=== PATIENT | male | born 1965 | race Caucasian/White ===

== ENCOUNTER 2020-04-14 13:12 | Outpatient (CLI) | payer OTHER, SELFPAY ==
--- NOTE | 2020-04-14 13:55 | CT_ITS ---
WS: [id number] CT ANGIOGRAPHY abdomen and pelvis AORTA HISTORY: F/U AAA, PELVIC PAIN, GENERALIZED ABDOMINAL PAIN TECHNIQUE: CT angiogram is performed during IV injection. Reformation images reviewed. All CT scans a [facility] use at least one of these dose optimization techniques: automated exposure co ntrol; mA and/or kV adjustment per patient size (includes targeted exams where dose is matched to cli nical indication); or iterative reconstruction. CONTRAST: Omnipaque 350; 95 mL IV. DLP: 990.18 mGycm COMPARISON: 01/01/2017 Mild emphysematous changes at the lung bases. Linear lingular atelectasis. No hiatal hernia. Normal h eart. Mild hepatic steatosis. Visualized liver and pancreas are normal. No adrenal mass. Normal early arter ial enhancement of the kidneys. Prior cholecystectomy and appendectomy. No adenopathy or ascites. The re are numerous sigmoid diverticula without acute diverticulitis. Very mild diffuse thickening of the bladder wall. Abdominal aorta: Moderate atherosclerotic changes within the abdominal aorta. Scattered calcified nomi ques throughout with circumferential intimal thickening. Lumen becomes narrowed just below the level of the renal arteries by thrombus. There has been increase in the amount of intraluminal thrombus sin ce the prior study. Mild aneurysmal dilatation to 3.0 cm has slightly progressed since the prior stud y. Mild narrowing and stenosis of the distal aorta and the proximal iliac arteries. No periaortic hem atoma. Origin of celiac axis and SMA are normal. Normal single-vessel renal arteries. LUCINDA is still pa tent. Degenerative disc disease at L5-S1. No osteoblastic or osteolytic bone disease. 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 CT/CT angio abdomen pelvis [id number] IMPRESSION: 1. Mild progression of abdominal aortic aneurysm now now measuring 3.0 cm. 2. Mild progression of atherosclerotic plaque and intimal thrombus. 3. Mild stenosis distal aorta and proximal common iliac arteries. 4. Luminal narrowing secondary to a regular intraluminal thrombus at the L2-3 level. Diameter of the patent lumen is 1.0 cm. 5. Prior appendectomy and cholecystectomy.
[2020-04-14] MEDS: iohexol 300 mg/mL 50 mL Btl PO (13:57)
[2020-04-14] MEDS: iohexol 350 mg/mL 100 mL Btl IV (15:25)
== END 2020-04-14 13:13 | disposition home or self-care (01) ==
PROVIDERS: Family Provider Family Medicine; Visit Provider Family Medicine
DX: R10.2 Pelvic and perineal pain (principal); R10.84 Generalized abdominal pain; I71.4 Abdominal aortic aneurysm, without rupture; I35.0 Nonrheumatic aortic (valve) stenosis
CPT/HCPCS: 74174; Q9967

== ENCOUNTER → 2020-05-19 10:36 | Outpatient (BNVA) | payer OTHER, SELFPAY | PROVIDERS: Family Provider Family Medicine; Referring Provider Family Medicine; Visit Provider Specialist | DX: M25.551 Pain in right hip (principal) | CPT/HCPCS: 73502 ==

== ENCOUNTER 2021-12-16 10:41 | Outpatient (CLI) | payer OTHER, SELFPAY ==
[2021-12-16 11:17] VITALS: BP 106/72; BP 106/76; PULSE 58; PULSE 66; RESP 18; TEMP 36.3; TEMP 36.7; O2SAT 97; O2SAT 98; BMI 27.5
== END 2021-12-16 13:26 | disposition home or self-care (01) ==
LOC: OPS 10:48
PROVIDERS: Visit Provider Nurse Practitioner
DX: U07.1 COVID-19 (principal)
CPT/HCPCS: 96365

== ENCOUNTER → 2022-04-04 11:58 | Outpatient (BNVA) | payer OTHER, SELFPAY | PROVIDERS: Visit Provider Family Medicine | DX: R35.0 Frequency of micturition (principal); E11.9 Type 2 diabetes mellitus without complications; I71.4 Abdominal aortic aneurysm, without rupture; K76.0 Fatty (change of) liver, not elsewhere classified | CPT/HCPCS: 80053; 80061; 83036; 84153; 85025 ==

== ENCOUNTER 2022-04-20 09:46 | Outpatient (CLI) | payer OTHER, SELFPAY ==
--- NOTE | 2022-04-20 10:23 | US_ITS ---
WS: [id number] Ultrasound pelvis, male patient. HISTORY: Pelvic pain off and on for 6 to 8 months. Urinary bladder is well distended. There is mild diffuse wall thickening probably due to outlet obstr uction. There is a small amount of debris in the dependent urinary bladder. Prostate gland is enlarge d encroaching into the bladder. Prostate measures 3.7 x 4.8 x 3.0 cm. No free fluid. US/US pelvic complete* [id number] IMPRESSION: 1. Mild diffuse wall thickening of the urinary bladder probably due to prostat e hypertrophy and partial outlet obstruction. 2. No focal bladder wall thickening. 3. Mild prostate enlargement.
--- NOTE | 2022-04-20 10:23 | USCV_ITS ---
Robert Malone Age: 56 Gender: M : 1965 Exam Date: 04/20/2022 10:47 Ordering Phys: Moises Powers MD Technologist: TIARRA Exam Location: [place] Indication: F/U KNOWN AAA AT DIST HISTORY: Diameter (cm) AP x Transverse x Length Velocity (cm/s) Waveform Prox Aorta: 2.33 x 2.87 x 67.80 Mid Aorta: 2.24 x 2.26 x 78.50 Distal Aorta: 3.00 x 3.12 x 4.07 85.90 Right Iliac Prox: 0.82 x 0.81 x 252.00 Left Iliac Prox: 0.83 x 0.74 x 138.60 Stent Prox Landing x x Aneurysmal Sac Max x x Lt Lat Sac Dim Rt Lat Sac Dim Stent Dist Landing x x Right Iliac Stent x x Left Iliac Stent x x Right Renal Art Left Renal Art FINDINGS: Comparison:. 12/20/18. A fusiform abdominal aortic aneurysm is noted with a maximal diameter of 3.1 cm. Mildly ectatic aorta with mild thrombus. There is evidence of atherosclerotic plaque no significan stenosis in the right common iliac artery. There is evidence of atherosclerotic plaque no significan stenosis in the left common iliac artery. CONCLUSIONS Ectatic mildly aneurysmal aorta, 3.[address] Henrietta Ruth DO (Electronically Signed) Final Date: 20 Apr 2022 12:38 S
== END 2022-04-20 09:47 | disposition home or self-care (01) ==
PROVIDERS: Visit Provider Family Medicine
DX: R10.2 Pelvic and perineal pain (principal); I71.4 Abdominal aortic aneurysm, without rupture; N40.0 Benign prostatic hyperplasia without lower urinary tract symptoms; I77.811 Abdominal aortic ectasia
CPT/HCPCS: 76706; 76856

== ENCOUNTER → 2022-07-26 07:44 | Outpatient (BNVA) | payer OTHER, SELFPAY | PROVIDERS: PCP Family Medicine; Visit Provider Nurse Practitioner Family | DX: N41.1 Chronic prostatitis (principal) | CPT/HCPCS: 81003; 87086 ==

== ENCOUNTER 2022-08-07 08:56 | Outpatient (CLI) | payer OTHER, SELFPAY ==
--- NOTE | 2022-08-07 | ECG_ITS ---
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 Interpretive Statements NAME OF STUDY: EXERCISE SESTAMIBI STRESS TEST INDICATION: Chest Pressure Baseline blood pressure of 112/77 mm Hg, heart rate of 73 beats per minute and oxygen saturation of 99%. EKG showed normal sinus rhythm, normal axis with no normal ST and T's. The patient exercised for 8 minutes 41 seconds on a standard Archie protocol. Patient attained a maximum heart rate of 150 beats per minute(90% of the maximum predicted heart rate) with a blood pressure at the peak exercise of 182/106 mm Hg and oxygen saturation 98%. The EKG at the peak exercise revealed sinus tachycardia with no significant ST-T wave changes. Patient did not have any chest pain or any significant arrhythmis with the exercise During the recovery phase, there were no new changes. Blood pressure at the end of the recovery phase was 127/74 mm Hg with a heart rate of 91 beats per minute and oxygen saturation 99%. CONCLUSION: 1. Normal EKG response to treadmill exercise. 2. No exercise-induced chest pain or cardiac arrhythmia. 3. Excellent exercise tolerance, attained a maximum of 10.2 METs. 4. Baseline normal blood pressure with normal response to exercise. 5. Perfusion scan will be documented separately. Electronically Signed On 08-08-2022 17:59:01 CDT by Maye Ferguson M.D. [id number]
[2022-08-07 09:44] VITALS: BMI 25.5
--- NOTE | 2022-08-07 09:44 | NMCV_ITS ---
NM erickson perf SPECT r/s* [id number] Robert Malone Age: 56 Gender: M : 1965 Exam Date: 08/07/2022 10:35 Ordering Phys: Moises Powers MD Technologist: CASEY Farmer Exam Location: [facility] Indications: Chest pain STRESS TEST Please see separate stress test report in [facility] for full findings IMAGE PROTOCOL Rest/Stress 1 Exercise Day Radiopharmaceutical Dose (mCi) Administration Site Administered by Rest: Tc-99m 11.0 IV CASEY Farmer Sestamibi Stress:Tc-99m 32.7 IV CASEY Farmer Sestamibi Rest: 07-Aug-2022 60 Discovery 630 Stress: 07-Aug-2022 15 Discovery 630 Radiopharmaceutical was injected at 85 % maximum heart rate. Images obtained in supine and prone position. SPECT RESULTS Technical Quality: Good Raw Data Analysis: Normal Image Corrections: Patient motion artifact - motion correction applied to stress supine Summed Stress Score: 1 Summed Rest Score: 1 Summed Difference Score: 1 PERFUSION FINDINGS SPECT images demonstrate homogeneous tracer distribution throughout the myocardium. FUNCTIONAL RESULTS (calculated via Gated SPECT) Stress Image LV EF (%): 59 Stress EDV (mL):90 TID: 0.87 Stress ESV (mL):37 FUNCTIONAL FINDINGS: The left ventricle is normal in size. Transient Ischemia Dilatation of 0.87. There is normal left ventricular systolic function. The left ventricular ejection fraction is normal with a value of 59%. There is normal left ventricular wall thickening. IMPRESSIONS 1. Myocardial perfusion imaging is normal. 2. Overall left ventricular systolic function is normal without regional wall motion abnormalities, LVEF=59%. 3. Excellent exercise tolerance with normal EKG response to treadmill exercise. Refer to separate report for details. Maye Ferguson MD (Electronically Signed) Final Date: 08 August 2022 18:00 S
[2022-08-07 11:26] VITALS: BP 127/74; PULSE 94
== END 2022-08-07 08:57 | disposition home or self-care (01) ==
PROVIDERS: PCP Family Medicine; Visit Provider Family Medicine
DX: R07.9 Chest pain, unspecified (principal)
CPT/HCPCS: 78452; 93017; A9500

== ENCOUNTER → 2022-09-15 08:11 | Outpatient (BNVA) | payer OTHER, SELFPAY | PROVIDERS: PCP Family Medicine; Visit Provider Urology | DX: N41.1 Chronic prostatitis (principal); R39.15 Urgency of urination | CPT/HCPCS: 81003 ==

== ENCOUNTER → 2023-01-22 12:45 | Outpatient (BNVA) | payer OTHER, SELFPAY | PROVIDERS: PCP Family Medicine; Visit Provider Urology | DX: R39.15 Urgency of urination (principal) | CPT/HCPCS: 81003 ==

== ENCOUNTER → 2023-05-17 07:54 | Outpatient (BNVA) | payer OTHER, SELFPAY | PROVIDERS: PCP Family Medicine; Visit Provider Urology | DX: N41.1 Chronic prostatitis (principal); R39.15 Urgency of urination | CPT/HCPCS: 81003 ==

== ENCOUNTER 2024-05-30 06:00 | Outpatient (CLI) | payer OTHER, SELFPAY | END 2024-05-30 06:01 | disposition home or self-care (01) | LOC: RAD 08-03 07:42 | PROVIDERS: PCP Family Medicine; Visit Provider Family Medicine | DX: I10 Essential (primary) hypertension (principal) | CPT/HCPCS: 80053; 80061; 84439; 84443; 85025; 93005 ==

== ENCOUNTER 2024-06-18 10:57 | Outpatient (CLI) | payer OTHER, SELFPAY ==
--- NOTE | 2024-06-18 11:15 | CT_ITS ---
WS: [id number] LDCT LUNG CANCER SCREENING TECHNIQUE: Noncontrast CT of the chest with coronal and sagittal reformatted images. CLINICAL INFORMATION: lung cancer screening COMPARISON: None. DLP: 94.19 mGy.cm DIvol: Mean CTDIvol: 1.80 (mGy) All CT scans at [facility] use at least one of these dose optimization techniques: automat ed exposure control; mA and/or kV adjustment per patient size (includes targeted exams where dose is matched to clinical indication); or iterative reconstruction. FINDINGS:Slight atelectasis in the lingula. No suspicious pulmonary parenchymal abnormalities. Few ca lcified granulomas RIGHT lower lobe. Aortic calcification. Normal caliber thoracic aorta. Coronary calcification. No mediastinal or hilar lymphadenopathy. Calcified subcarinal and RIGHT hilar lymph nodes. No axillary lymphadenopathy. Adrenal glands are normal. Normal GE junction. Mild thoracic curve.Cholecystectomy clips. CT/CT lung screening [id number] IMPRESSION: LUNG-RADS: 2-Benign Appearance or Behavior FOLLOW UP: 12 Month: Continue annual screening with LDCT
--- NOTE | 2024-06-18 11:47 | USCV_ITS ---
Faisal Robert Age: 58 Gender: M : 1965 Exam Date: 06/18/2024 11:55 Ordering Phys: Piter Saxena MD Technologist: USR [place] [facility] [place]: aaa HISTORY: Diameter (cm) AP x Transverse x Length Velocity (cm/s) Waveform Prox Aorta: 2.10 x 2.00 x 68.20 Biphasic Mid Aorta: 2.80 x 2.80 x 82.50 Biphasic Distal Aorta: 3.30 x 3.50 x 75.20 Biphasic Right Iliac Prox: 0.74 x 1.00 x 98.70 Biphasic Left Iliac Prox: 0.84 x 1.30 x 124.40 Biphasic Stent Prox Landing x x Aneurysmal Sac Max x x Lt Lat Sac Dim Rt Lat Sac Dim Stent Dist Landing x x Right Iliac Stent x x Left Iliac Stent x x Right Renal Art Left Renal Art FINDINGS: Comparison:. 04/20/22 A fusiform abdominal aortic aneurysm is noted with a maximal diameter of 3.5 cm. Mild increase in size since the prior exam. There is evidence of atherosclerotic plaque no significan stenosis in the right common iliac artery. There is evidence of atherosclerotic plaque no significan stenosis in the left common iliac artery. CONCLUSIONS Dr. Henrietta Ruth DO (Electronically Signed) Final Date: 18 June 2024 13:11 S
--- NOTE | 2024-06-18 11:47 | USCV_ITS ---
Robert Malone Age: 58 Gender: M : 1965 Exam Date: 06/18/2024 12:09 Ordering Phys: Piter Saxena MD Technologist: Exam Location: [facility] [place] Indication: sob chest pain BP: 134 / 72 HR: 70 Rhythm: Sinus Technical Quality: Adequate MEASUREMENTS (Male / Female) Normal Values 2D ECHO LV Diastolic Diameter PLAX 5.6 cm 4.2 - 5.9 / 3.9 - 5.3 cm IVS Diastolic Thickness 1.0 cm 0.6 - 1.0 / 0.6 - 0.9 cm IVS Systolic Thickness 1.3 cm LVPW Diastolic Thickness 1.2 cm 0.6 - 1.0 / 0.6 - 0.9 cm LVPW Systolic Thickness 1.4 cm LVOT Diameter 2.0 cm LV Ejection Fraction 2D Teich 67.8 % LV Ejection Fraction MOD 4C 58.6 % LV Ejection Fraction MOD 2C 66.8 % LV Ejection Fraction 2C AL 66.8 % LA Diameter 3.2 cm RA Systolic Volume 4C AL 31.1 ml RA Systolic Volume 4C MOD 31.4 ml LA Sys Volume AL 38.1 cm cubed LA Sys Volume Index AL 17.0 cm cubed/m squared Aorta at Sinotubular Diameter 3.4 cm IVC Diameter 1.6 cm M-MODE LA Ao Ratio MM 0.8 AV Cusp Separation MM 2.4 cm DOPPLER AV Peak Velocity 122.0 cm/s LVOT Peak Velocity 74.0 cm/s AV Area Cont Eq vti 1.9 cm squared AV Area Cont Eq pk 2.0 cm squared MV Peak Velocity 90.0 cm/s MV Area PHT 3.6 cm squared Mitral E to A Ratio 1.1 TV Peak Velocity 196.5 cm/s TR Peak Velocity 218.0 cm/s TR Peak Gradient 19.0 mmHg TV Peak E Velocity 111.0 cm/s Right Atrial Pressure 3.0 mmHg Pulmonary Artery Systolic Pressu 22.0 mmHg PV Peak Velocity 88.0 cm/s FINDINGS Left Ventricle Normal LV size ejection fraction of 59%. No gross wall motion abnormalities. Right Ventricle The right ventricle is normal in size and function. Right Atrium The right atrium is normal in size. Left Atrium The left atrium is normal in size. Mitral Valve Mild mitral annular calcification. Aortic Valve Thickened aortic valve. Tricuspid Valve Trace tricuspid valve regurgitation. Pulmonic Valve No gross abnormalities noted Pericardium Normal pericardium without effusion. Aorta Normal ascending aorta dimension. IVC Normal inferior vena cava. CONCLUSIONS Normal LV size ejection fraction of 59%. No gross wall motion abnormalities. Mild mitral annular calcification. Trace tricuspid valve regurgitation. Estimated pulmonary artery peak systolic pressure 22 mmHg No intracardiac masses There is no pericardial effusion. No similar previous studies are available for comparison Dr Inessa Lucas MD FAC (Electronically Signed) Final Date: 18 June 2024 17:32 S
== END 2024-06-18 10:58 | disposition home or self-care (01) ==
LOC: RAD 10:57
PROVIDERS: PCP Family Medicine; Visit Provider Family Medicine
DX: Z12.2 Encounter for screening for malignant neoplasm of respiratory organs (principal); F17.219 Nicotine dependence, cigarettes, with unspecified nicotine-induced disorders; I49.8 Other specified cardiac arrhythmias; I71.40 Abdominal aortic aneurysm, without rupture, unspecified; J84.10 Pulmonary fibrosis, unspecified; I89.8 Other specified noninfective disorders of lymphatic vessels and lymph nodes; Z98.890 Other specified postprocedural states; I34.81 Nonrheumatic mitral (valve) annulus calcification; I35.8 Other nonrheumatic aortic valve disorders
CPT/HCPCS: 71271; 93306; 93978

== ENCOUNTER 2024-08-13 06:25 | Day surgery (SDC) | payer OTHER, SELFPAY ==
--- NOTE | 2024-08-13 01:48 | ANES.PREANE2 ---
Pre-Anesthetic Assessment Height/Weight: Height 6 ft 4 in Preop Diagnosis: Need for screening colonoscopy Operation Date: 08/13/24 07:30 Proposed Procedures p Colonoscopy [id number], G0121, Z12.11(Not Applicable) - Oneil Adan DO Was Beta Liz taken within 24 hours: N/A Was Clonidine taken within 24 hours: N/A Social Tobacco and No alcohol Exam alert, oriented x 3, clear to auscultation bilaterally and regular rate & rhythm Airway Submandibular: within normal limits Cervical ROM: within normal limits Mallampati: Class II Dentition: other (Edentulous) Anesthetic Plan ASA status: 2 Anesthesia: MAC Other: No prior issues with anesthesia Completed bowel prep History of hypertension, on metoprolol and amlodipine Patient does have a AAA, 3.5 cm Patient denies any pulmonary issues, current smoker Labs 05/30/2024 reviewed Plan for MAC anesthetic Medications/Allergies Home Medications Medication Instructions Recorded Confirmed Last Taken Type amlodipine 10 mg-atorvastatin 20 1 tab PO DAILY 08/11/24 08/11/24 08/11/24 History mg tablet metoprolol succinate 25 mg 25 mg PO DAILY 08/11/24 08/11/24 08/11/24 History tablet,extended release 24 hr tadalafil 5 mg tablet 5 mg PO DAILY PRN Sexual Activity 08/11/24 08/13/24 Unknown History Allergies Allergy/AdvReac Type Severity Reaction Status Date / Time No Known Allergies Allergy Verified 08/13/24 06:34 [facility] Anesthesia Medical History Tobacco use disorder, severe, dependence Fluttering heart Hyperlipidemia Essential hypertension AAA (abdominal aortic aneurysm) Vascular disease Surgical History History of cholecystectomy Hx of appendectomy Family History Mother Healthy adult Father , Unknown of age CAD (coronary artery disease) Social History Smoking and tobacco/nicotine status: current every day tobacco/nicotine user Alcohol intake: former Substance/Drug Use: never Adopted: No Lives independently: Yes Household members: spouse Marital status: service: No Current occupational status: employed Current occupational exposures/hazards: Yes Data Anesthesia Cardiac Studies: Echocardiogram 06/18/24 Sestamibi Stress Test (Cardiology) 08/07/22
[2024-08-13 06:37] VITALS: BP 105/84; PULSE 71; RESP 18; TEMP 36.1; O2SAT 98
[2024-08-13 06:38] VITALS: BMI 27.5
[2024-08-13] MEDS: sodium chloride 0.9% 1,000 ML 30 ML IV (06:42)
--- NOTE | 2024-08-13 07:01 | PM.HP ---
Providers/Chief Complaint Primary Care Provider: Piter Saxena MD Chief Complaint: Z12.11 History of Present Illness Robert Malone is a 58 year old male Review of Systems General: Reports: 10 or more systems reviewed and unremarkable except in HPI and below Medications/Allergies Home Medications Medication Instructions Recorded Confirmed Last Taken Type amlodipine 10 mg-atorvastatin 20 1 tab PO DAILY 08/11/24 08/11/24 08/11/24 History mg tablet metoprolol succinate 25 mg 25 mg PO DAILY 08/11/24 08/11/24 08/11/24 History tablet,extended release 24 hr tadalafil 5 mg tablet 5 mg PO DAILY PRN Sexual Activity 08/11/24 08/13/24 Unknown History Allergies Allergy/AdvReac Type Severity Reaction Status Date / Time No Known Allergies Allergy Verified 08/13/24 06:34 PFSH Acute PFSH: Medical History Tobacco use disorder, severe, dependence Fluttering heart Hyperlipidemia Essential hypertension AAA (abdominal aortic aneurysm) Vascular disease Surgical History History of cholecystectomy Hx of appendectomy Family History Mother Healthy adult Father , Unknown of age CAD (coronary artery disease) Social History Smoking and tobacco/nicotine status: current every day tobacco/nicotine user Alcohol intake: former Substance/Drug Use: never Adopted: No Lives independently: Yes Household members: spouse Marital status: service: No Current occupational status: employed Current occupational exposures/hazards: Yes Vitals/I&O/Wt Last Vital Signs Temp 97.0 F L 08/13/24 06:37 Pulse 71 08/13/24 06:37 Resp 18 08/13/24 06:37 BP 105/84 08/13/24 06:37 Pulse Ox 98 08/13/24 06:37 O2 Del Method Room Air 08/13/24 06:37 Weight last 48 hrs Weight 220 lb A&P Assessment and plan (1) Encounter for screening for colorectal malignant neoplasm: Plan Colonoscopy Attestations Medical Necessity Statement*: Home Coding Level of Care Code Acute Code for Chg Fwd Diagnoses Encounter for screening for colorectal malignant neoplasm Z12.11; Z12.12
[2024-08-13 07:47] VITALS: BP 119/76; PULSE 68; RESP 12; TEMP 36.2; O2SAT 94
[2024-08-13 07:54] VITALS: BP 126/87; PULSE 82; RESP 16; O2SAT 95
--- NOTE | 2024-08-13 08:27 | ANE.PACU2 ---
Inpatient post-anesthesia follow up: Airway intact: Yes Vital signs: Temperature 97.2 F Pulse Rate 82 Respiratory Rate 16 Blood Pressure 126/87 Pulse Oximetry 95 Oxygen Delivery Me thod Room Air Oxygen Flow Rate Fraction of Inspir ed Oxygen Hydration adequate: Yes Nausea and vomiting: No Pain level: 1 Mental status: Baseline
== END 2024-08-13 08:27 | disposition home or self-care (01) ==
PROVIDERS: PCP Family Medicine; Visit Provider Surgery
PROC: 0DJD8ZZ Inspection of Lower Intestinal Tract, Via Natural or Artificial Opening Endoscopic (ICD-10-PCS; CPT 45378; principal; 2024-08-13 07:30)
DX: Z12.11 Encounter for screening for malignant neoplasm of colon (principal); D12.2 Benign neoplasm of ascending colon; D12.3 Benign neoplasm of transverse colon; K57.30 Diverticulosis of large intestine without perforation or abscess without bleeding; K64.8 Other hemorrhoids; E78.5 Hyperlipidemia, unspecified; I10 Essential (primary) hypertension; F17.200 Nicotine dependence, unspecified, uncomplicated
CPT/HCPCS: 45385; 88305; J2704; J7030